=== PATIENT | male | born 1975 | race African-American/Black ===

== ENCOUNTER 2018-12-19 06:04 | Emergency (ER) | payer BC ==
[2018-12-19 06:33] VITALS: TEMP 97.8; BMI 26.2
--- NOTE | 2018-12-19 07:29 | PDOC ---
History of Present Illness - General Chief Complaint: Shortness of Breath Stated Complaint: SOB,IRREGULAR HEART BEAT Time Seen by Provider: 12/19/18 07:05 History Source: Patient - History of Present Illness Initial Comments: 12/19/18 07:24 Patient is a 43 y/o male with no past medical history who presents for palpitations. He woke up this morning to feeling like his heart was beating really hard and fast. It lasted for less then an hour. Patient went to his PCP yesterday for R foot pain and was given Meloxicam, yesterday was the first time he took it. He also went to the Urologist yesterday for difficulty urinating and he started Tamsulosin and Finasteride. Patient has no family history of cardiac disease. Patient denies smoking or drinking any alcohol. Patient denies chest pain, shortness of breath, nausea, vomiting, or sick contacts. Past History - Past Medical History Allergies/Adverse Reactions: Allergies Allergy/AdvReac Type Severity Reaction Status Date / Time No Known Allergies Allergy Verified 12/19/18 07:38 Home Medications: Ambulatory Orders NK [No Known Home Medication] 12/19/18 COPD: No - Suicide/Smoking/Psychosocial Hx Smoking History: Never smoked Have you smoked in the past 12 months: No Hx Alcohol Use: No Drug/Substance Use Hx: No Review of Systems - Review of Systems Constitutional: No: Chills, Fever HEENTM: No: Eye Pain Respiratory: No: Cough, Shortness of Breath Cardiac (ROS): Yes: Palpitations. No: Chest Pain ABD/GI: No: Abdominal Distended, Constipated, Nausea, Vomiting Musculoskeletal: No: Back Pain *Physical Exam - Vital Signs Last Vital Signs Temp Pulse Resp BP Pulse Ox 97.8 F 107 H 20 142/88 98 12/19/18 06:15 12/19/18 06:15 12/19/18 06:15 12/19/18 06:15 12/19/18 06:15 - Physical Exam Comments: 12/19/18 07:29 GENERAL: A&O x3, no acute distress EYES: EOMI HEART: RRR, no murmurs, rubs, or gallops LUNGS: CTAL B/L ABDOMEN: soft, non tender, non distended EXTREMITIES: R foot without swelling, ROM intact, no pitting edema SKIN: no rashes or ulcers noted ED Treatment Course - LABORATORY CBC & Chemistry Diagram: 12/19/18 07:34 12/19/18 07:34 Medical Decision Making - Medical Decision Making 12/19/18 07:31 f/u EKG, CBC, CMP 12/19/18 08:32 EKG WNL, CBC and CMP normal, vitals stable *DC/Admit/Observation/Transfer Diagnosis at time of Disposition: Palpitations - Discharge Dispostion Disposition: HOME Condition at time of disposition: Good - Referrals Referrals: Zeyad Cohen [Primary Care Provider] - Stephon Abdi MD [Staff Physician] - - Patient Instructions Printed Discharge Instructions: DI for Palpitations Additional Instructions: You came to the hospital for your heart beating fast. We did and EKG of your heart and took blood work and found that your heart is functioning properly. Please continue your home medications as prescribed. Please make an appointment with a technician inventory specialist if your symptoms recur. Return to the Emergency Department if you have fever, chills, chest pain, nausea , fainting, dizziness, or shortness of breath. - Post Discharge Activity
[2018-12-19 07:52] LABS: BASO % 0.6 % (0-2.0); EOS % 0.6 % (0-4.5); HEMATOCRIT 45.2 % (35.4-49); HEMOGLOBIN 15.2 GM/dL (11.7-16.9); LYMPH % 39.1 % (8-40); MCH 31.4 pg (25.7-33.7); MCHC 33.7 g/dl (32.0-35.9); MEAN CELL VOLUME 93.2 fl (80-96); MEAN PLT VOLUME 7.6 fl (7.5-11.1); MONO % 11.8 % (3.8-10.2); NEUT % 47.9 % (42.8-82.8); PLATELET COUNT 177 K/MM3 (134-434); RBC 4.85 M/mm3 (4.00-5.60); RDW 14.1 % (11.9-15.9)
[2018-12-19 08:22] LABS: ALBUMIN 3.6 g/dl (3.4-5.0); ALK PHOS 68 U/L (45-117); ANION GAP 6 MMOL/L (8-16); BILIRUBIN,TOTAL 0.4 mg/dL (0.2-1); BLOOD UREA NITROGEN 23 mg/dL (7-18); CHLORIDE 103 mmol/L (98-107); CO2 28 mmol/L (21-32); CREATININE 1.3 mg/dL (0.55-1.3); GLUCOSE,RANDOM 90 mg/dL (74-106); POTASSIUM 3.9 mmol/L (3.5-5.1); SGOT/AST 33 U/L (15-37); SGPT/ALT 32 U/L (13-61); SODIUM 138 mmol/L (136-145); TOT PROT 7.3 g/dl (6.4-8.2)
--- NOTE | 2018-12-19 08:27 | PDOC ---
Attending Attestation - Resident Resident Name: Kimberly Hidalgo - ED Attending Attestation I have performed the following: I have examined & evaluated the patient, The case was reviewed & discussed with the resident, I agree w/resident's findings & plan - HPI HPI: 12/19/18 08:27 43 y/o male with no past medical history who presents for palpitations when he woke up this morning, lasted several seconds and self resolved of note, he started using new medications including meloxicam via PCP yesterday for his right foot pain, urologist as well who rx'd him tamsulosin and finesteride for his urinary difficulties likely early bph. Patient has no family history of cardiac disease. Patient denies smoking or drinking any alcohol. Patient denies chest pain, shortness of breath, nausea, vomiting, or sick contacts. admits to drinking caffeine daily, no herbal or otc supplement use. - Physicial Exam PE: 12/19/18 08:27 NAD, well appearing, PERRL, EOMI, MMM, nl conjunctiva, anicteric; neck supple. lungs clear, RRR, abdomen soft nontender. VANEGAS x4, no focal neuro deficits. No peripheral edema. normal color for ethnicity, WW. - Medical Decision Making 12/19/18 08:29 See HPI for details Vital signs reviewed, wnl. mild tachy, likely anxiety; no pain, and in no acute distress. ddx arrhythmia, dehydration, electrolyte/metabolic derangements, medication side effect doubt cardiac or ACS, as no cp or sob. palp brief in duration, likely from medication side effect with use of new finesteride/tamsulosin, with side effect profile and orthostatics. HD appropriate here. doubt PE or cardiovascular etiology as precipitant. Prior notes reviewed, including admissions, discharges and consultations. laboratory results and imaging reviewed, basic labs and lytes wnl, EKG normal sinus rhythm at 86 bpm, no interval abnormalities, narrow QRS, ST and T wave segments and morphology normal. ED course - symptoms resolved, NAD and no acute events - cards and PCP followup. avoid triggers and sympathomimetics. c/w adequate hydration. - VS recheck and normalized. Dispo: Pt informed of my clinical impression, treatment recommendations and disposition plan. All questions answered to patient's satisfaction and expressed understanding and comfort with this. Reasons for returning to the ED sooner discussed with the patient otherwise, follow up with primary care physician. At the time of discharge, the patient is alert, clinically improved, tolerating po and verbalizes understanding of instructions. Patient does not suffer from an acute life-threatening medical condition at this time she is safe for outpatient follow-up. 12/19/18 08:31 12/19/18 08:32 Heart Score/ECG Review #1 ECG reviewed & interpreted by me at: 06:15 General ECG Interpretation: Sinus Rhythm 12/19/18 08:32 EKG normal sinus rhythm at 86 bpm, no interval abnormalities, narrow QRS, ST and T wave segments and morphology normal.
[2018-12-19 08:41] VITALS: BP 126/85; PULSE 76
--- NOTE | 2018-12-19 10:22 | EKG ---
Test Reason : Blood Pressure : / mmHG Vent. Rate : 086 BPM Atrial Rate : 086 BPM P-R Int : 158 ms QRS Dur : 100 ms QT Int : 384 ms P-R-T Axes : 039 037 038 degrees QTc Int : 459 ms NORMAL SINUS RHYTHM NORMAL ECG NO PREVIOUS ECGS AVAILABLE Confirmed by BOBBY FELIX MD ([id number]) on 12/19/2018 10:22:21 AM Referred By: Confirmed By:BOBBY FELIX MD
== END 2018-12-19 08:33 | disposition home or self-care (01) ==
LOC: JER 06:04
DX: R00.2 Palpitations (principal)
CPT/HCPCS: 36415; 80053; 85025; 93005; 93010; 99282-25